=== PATIENT | female | born 1995 | race Caucasian/White ===

== ENCOUNTER 2017-03-18 12:17 | Emergency (ER) | payer MEDICAID, OTHER ==
[2017-03-18 12:24] VITALS: O2SAT 99
--- NOTE | 2017-03-18 12:56 | ERPHSYRPT ---
- History of Present Illness Time Seen by Provider: 03/18/17 12:43 Source: patient, family (boyfriend) Patient Subjective Stated Complaint: PT REPORTS TOOTHACHE FOR JUSTIN 1 MONTH- STATES THAT NOTHING HAS CHANGED ABOUT IT BUT SHE IS TIRED OF THE PAIN-DENIES FEVER-DENIES SWELLING Triage Nursing Assessment: PT PINK WARM ET [id number] EASY ET NONLABORED-NO SWELLING NOTED-NO OBVIOUS DENTAL CARRIES NOTED Physician History: CC: toothache Hx: 21 y/o patient with left lower toothache for one month. She does not have dentist. Pain worse. Working on switching her insurance. No fever or chills. No shortness or breath or vomiting. LMP end of last month and not time for next so apparently not . ENT Location: mouth (left), dental Allergies/Adverse Reactions: No Known Drug Allergies Allergy (Verified 03/18/17 12:24) Home Medications: No Home Meds 1 ea UD 03/18/17 [History] Hx Tetanus, Diphtheria Vaccination/Date Given: Yes Hx Influenza Vaccination/Date Given: No Hx Pneumococcal Vaccination/Date Given: No Immunizations Up to Date: Yes - Review of Systems Constitutional: No Fever, No Chills Eyes: No Symptoms, No Vision Changes, No Double Vision Ears, Nose, & Throat: Mouth Pain Respiratory: No Cough, No Dyspnea Abdominal/Gastrointestinal: No Vomiting, No Diarrhea Skin: No Rash Neurological: No Headache - Past Medical History Pertinent Past Medical History: No Neurological History: No Pertinent History ENT History: No Pertinent History Cardiac History: No Pertinent History Respiratory History: No Pertinent History Endocrine Medical History: No Pertinent History Musculoskeletal History: No Pertinent History GI Medical History: No Pertinent History History: No Pertinent History Psycho-Social History: No Pertinent History Female Reproductive Disorders: Other (pt is approx 6 months ) - Past Surgical History Past Surgical History: Yes Neuro Surgical History: No Pertinent History Cardiac: No Pertinent History Respiratory: No Pertinent History Gastrointestinal: No Pertinent History Genitourinary: No Pertinent History Musculoskeletal: No Pertinent History Female Surgical History: Other - Social History Smoking Status: Current every day smoker How long have you smoked: YRS Exposure to second hand smoke: Yes Drug Use: none Patient Lives Alone: No - Female History Hx Last Menstrual Period: LAST MONTH - Nursing Vital Signs Nursing Vital Signs: Initial Vital Signs Temperature 97.9 F 03/18/17 12:21 Pulse Rate 77 03/18/17 12:21 Respiratory Rate 18 03/18/17 12:21 Blood Pressure 141/64 03/18/17 12:21 O2 Sat by Pulse Oximetry 99 03/18/17 12:21 Pain Scale Pain Intensity 10 - Physical Exam General Appearance: alert, thin Eye Exam: bilateral eye: PERRL, EOMI Nasal Exam: normal inspection Throat Exam: pharynx normal, No tonsillar exudate Neck Exam: normal inspection, non-tender, supple Cardiovascular/Respiratory Exam: normal breath sounds, regular rate/rhythm Neurologic Exam: alert, oriented x 3, cooperative Skin Exam: warm, dry, other (no facial cellulitis) SpO2 Interpretation: normal SpO2: 99 Oxygen Delivery: Room Air Comments: some swelling around left 1st molar but only mildly tender. No trismus. No facial cellulitis. Some tooth erosion and gingival disease. - Course Nursing assessment & vital signs reviewed: Yes - Progress Progress Note: 03/18/17 12:54 Advised dental follow up. Rx amoxil and motrin. She declines test. Counseled pt/family regarding: diagnosis, need for follow-up - Departure Time of Disposition: 12:54 Departure Disposition: Home Clinical Impression: Toothache Condition: Stable Critical Care Time: No Referrals: DOCTOR,NO FAMILY [Primary Care Provider] - Instructions: Tooth Decay, Dental Pain Additional Instructions: Rx amoxil. Rx ibuprofen. See dentist this week for follow up- referral sheet given. Prescriptions: Ibuprofen [IBUPROFEN 400 MG TABLET] 1 tablet PO Q6HPRN PRN #20 PRN Reason: Pain Amoxicillin [Amoxil] 1 cap PO TID #21 capsule
[2017-03-18 13:06] VITALS: BP 125/71; PULSE 81
== END 2017-03-18 13:06 | disposition home or self-care (01) ==
LOC: ED 12:17
DX: K08.89 Other specified disorders of teeth and supporting structures (principal)
CPT/HCPCS: 99282

== ENCOUNTER 2017-06-25 20:37 | Emergency (ER) | payer OTHER ==
[2017-06-25 21:06] VITALS: O2SAT 100
[2017-06-25] MEDS ORDERED: Sodium Chloride 0.9% 1000 ML 1,000 ML IV STA (21:14)
[2017-06-25] MEDS ORDERED: Sodium Chloride 0.9% 1000 ML 1,000 ML ONE (21:17)
--- NOTE | 2017-06-25 21:18 | ERPHSYRPT ---
- History of Present Illness Time Seen by Provider: 06/25/17 21:11 Source: patient Patient Subjective Stated Complaint: Pt reports that she has had nausea off and on all days. Denies vomiting, denies diarrhea. Reports LMP 2.5 weeks ago. Reports feeling dizzy and like she was going to pass out, describes a feeling of racing heart earlier. Has been drinking fluids without difficulty, last food intake at 1900. Reports diffuse abd pain 7/10 describes as achy. Triage Nursing Assessment: Pt alert, oriented, answers all questions appropriately. Skin pink, warm, dry. Resps non-labored. Pt ambulatory without difficulty steady gait noted. Physician History: 22-year-old white female arrives with complaint of feeling like she's been dizzy felt like her heart was racing feels nauseous feels like she is going to pass out symptoms all day. Past medical history is negative past surgical history an ovarian cyst. Social history positive for tobacco use Timing/Duration: today Severity: moderate Modifying Factors: Improves With: nothing Associated Symptoms: nausea, No vomiting, No shortness of breath, No heartburn, No diaphoresis (mild diffuse she really give any belly ), No cough, No chills, No chest pain, No fever, No headaches, No loss of appetite, No malaise, No rash , No syncope, No seizure, No weakness Allergies/Adverse Reactions: No Known Drug Allergies Allergy (Verified 06/25/17 21:06) Home Medications: No Home Meds [No Home Meds] 1 ea UD 03/18/17 [History] Hx Tetanus, Diphtheria Vaccination/Date Given: Yes Hx Influenza Vaccination/Date Given: No Hx Pneumococcal Vaccination/Date Given: No Immunizations Up to Date: Yes - Review of Systems Constitutional: No Fever, No Chills Eyes: No Symptoms, No Eye Pain, No Eye Redness, No Itchy, No Photophobia, No Tearing, No Vision Changes, No Double Vision, No Foreign Body Sensation Ears, Nose, & Throat: No Symptoms, No Ear Pain, No Ear Discharge, No Hearing Changes, No Tinnitus, No Nose Pain, No Nose Congestion, No Nose Discharge, No Sinus Drainage, No Epistaxis, No Mouth Pain, No Mouth Swelling, No Loose Teeth, No Throat Pain, No Throat Swelling, No Hoarse, No Painful Swallowing, No Snoring , No Stridor Respiratory: No Symptoms, No Cough, No Dyspnea Cardiac: Palpitations, No Chest Pain, No Edema, No Syncope Abdominal/Gastrointestinal: Nausea, No Abdominal Pain, No Vomiting, No Diarrhea , No Constipation, No Hematemesis, No Hematochezia, No Melena, No Dysphagia, No Appetite Changes Genitourinary Symptoms: No Dysuria Musculoskeletal: No Back Pain, No Neck Pain Skin: No Rash Neurological: No Dizziness, No Focal Weakness, No Sensory Changes Psychological: No Symptoms Endocrine: No Symptoms All Other Systems: Reviewed and Negative - Past Medical History Pertinent Past Medical History: No Neurological History: No Pertinent History ENT History: No Pertinent History Cardiac History: No Pertinent History Respiratory History: No Pertinent History Endocrine Medical History: No Pertinent History Musculoskeletal History: No Pertinent History GI Medical History: No Pertinent History History: No Pertinent History Psycho-Social History: No Pertinent History Female Reproductive Disorders: Other - Past Surgical History Past Surgical History: Yes Neuro Surgical History: No Pertinent History Cardiac: No Pertinent History Respiratory: No Pertinent History Gastrointestinal: No Pertinent History Genitourinary: No Pertinent History Musculoskeletal: No Pertinent History Female Surgical History: Other - Social History Smoking Status: Current every day smoker How long have you smoked: 2 years Exposure to second hand smoke: Yes Drug Use: none Patient Lives Alone: No - Female History Hx Last Menstrual Period: 2.5 weeks ago - Nursing Vital Signs Nursing Vital Signs: Initial Vital Signs Temperature 98.1 F 06/25/17 21:01 Pulse Rate 95 H 06/25/17 21:01 Respiratory Rate 16 06/25/17 21:01 Blood Pressure 118/78 06/25/17 21:01 O2 Sat by Pulse Oximetry 100 06/25/17 21:01 Pain Scale Pain Intensity 2 - Physical Exam General Appearance: no apparent distress, alert Eye Exam: PERRL/EOMI, eyes nml inspection Ears, Nose, Throat Exam: normal ENT inspection, TMs normal, pharynx normal, moist mucous membranes Neck Exam: normal inspection, non-tender, supple, full range of motion Respiratory Exam: normal breath sounds, lungs clear, No respiratory distress Cardiovascular Exam: regular rate/rhythm, normal heart sounds, normal peripheral pulses Gastrointestinal/Abdomen Exam: soft, normal bowel sounds, No tenderness, No mass Back Exam: normal inspection, normal range of motion, No CVA tenderness, No vertebral tenderness Extremity Exam: normal inspection, normal range of motion, pelvis stable Neurologic Exam: alert, oriented x 3, cooperative, normal mood/affect, nml cerebellar function, nml station & gait, sensation nml, No motor deficits Skin Exam: normal color, warm, dry, No rash Lymphatic Exam: No adenopathy SpO2 Interpretation: normal (100%) SpO2: 100 Oxygen Delivery: Room Air - Course Nursing assessment & vital signs reviewed: Yes EKG Interpreted by Me: RATE (70 bpm), NORMAL AXIS, Other (EKG: Sinus arrhythmia , 70 bpm, normal axis, no acute ST or T wave changes essentially normal EKG) Ordered Tests: Active Orders 24 hr Category Date Time Status Accucheck STAT Care 06/25/17 21:14 Active EKG-ER Only STAT Care 06/25/17 21:14 Active IV Insertion STAT Care 06/25/17 21:14 Active Orthostatic Vital Signs STAT Care 06/25/17 21:14 Active CBC W DIFF Stat Lab 06/25/17 21:10 Completed CMP Stat Lab 06/25/17 21:10 Completed CULTURE,URINE Stat Lab 06/25/17 21:15 Received HCG QUALITATIVE,SERUM Stat Lab 06/25/17 21:10 Completed UA W/ MICROSCOPIC Stat Lab 06/25/17 21:15 Completed Urine Triage Profile Stat Lab 06/25/17 21:15 Completed Medication Summary Discontinued Medications Generic Name Dose Route Start Last Admin Trade Name Anitra PRN Reason Stop Dose Admin Sodium Chloride 1,000 mls @ 999 mls/hr 06/25/17 21:14 06/25/17 21:19 Sodium Chloride 0.9% 1000 Ml IV 06/25/17 22:14 999 mls/hr .Q1H1M STA Administration Sodium Chloride Confirm 06/25/17 21:17 Sodium Chloride 0.9% 1000 Ml Administered 06/25/17 21:18 Dose 1,000 mls @ ud .ROUTE .STK-MED ONE Ondansetron HCl 4 mg 06/25/17 23:39 Zofran 4 Mg/2 Ml Vial IV 06/25/17 23:40 STAT ONE Trimethoprim/Sulfamethoxazole 1 tab 06/25/17 23:39 Bactrim Ds Tablet PO 06/25/17 23:40 STAT ONE Lab/Rad Data: Laboratory Result Diagrams 06/25/17 21:10 06/25/17 21:10 Laboratory Results 06/25/17 06/25/17 06/25/17 Range/Units 21:15 21:15 21:10 WBC (4.0-10.5) K/mm3 RBC (4.1-5.4) M/mm3 Hgb (12.0-16.0) gm/dl Hct (35-47) % MCV (78-100) fl MCH (26-32) pg MCHC (32-36) g/dl RDW (11.5-14.0) % Plt Count (150-450) K/mm3 MPV (6-9.5) fl Gran % (36.0-66.0) % Lymphocytes % (24.0-44.0) % Monocytes % (0.0-12.0) % Eosinophils % (0.00-5.0) % Basophils % (0.0-0.4) % Basophils # (0-0.4) Sodium (136-145) mEq/L Potassium (3.5-5.1) mEq/L Chloride (98-107) mEq/L Carbon Dioxide (21-32) mEq/L Anion Gap (5-15) MEQ/L BUN (9-20) mg/dL Creatinine (0.55-1.30) mg/dl Estimated GFR ML/MIN Glucose (70-110) MG/DL Calcium (8.5-10.1) mg/dL Total Bilirubin (0.2-1.0) mg/dL AST (15-37) U/L ALT (12-78) U/L Alkaline Phosphatase (46-116) U/L Serum Total Protein (6.4-8.2) gm/dL Albumin (3.4-5.0) g/dL Serum , Qual NEGATIVE (Negative) Ur Collection Type CLEAN CATCH Urine Color YELLOW (YELLOW) Urine Appearance CLOUDY (CLEAR) Urine pH 5.0 (5-6) Ur Specific Flushing 1.030 (1.005-1.025) Urine Protein NEGATIVE (Negative) Urine Ketones NEGATIVE (NEGATIVE) Urine Blood TRACE NON-HEM (0-5) Clifford/ul Urine Nitrite NEGATIVE (NEGATIVE) Urine Bilirubin NEGATIVE (NEGATIVE) Urine Urobilinogen NORMAL (0-1) mg/dL Ur Leukocyte Esterase 1+ (NEGATIVE) Urine Microscopic WBC 5-10 (0-5) /HPF Ur Epithelial Cells MODERATE (FEW) /HPF Urine Bacteria FEW (NEGATIVE) /HPF Urine Mucus SLIGHT (NEGATIVE) /HPF Urine Culture Reflexed YES (NO) Urine Glucose NEGATIVE (NEGATIVE) mg/dL Urine Opiates Level NEG. (NEGATIVE) Ur Methadone NEG. (NEGATIVE) Urine Barbiturates NEG. (NEGATIVE) Ur Phencyclidine (PCP) NEG. (NEGATIVE) Urine Amphetamine NEG. (NEGATIVE) U Benzodiazepine Level NEG. (NEGATIVE) Urine Cocaine NEG. (NEGATIVE) Urine Marijuana (THC) NEG. (NEGATIVE) Specimen Received [id number] 06/25/17 06/25/17 Range/Units 21:10 21:10 WBC 13.3 H (4.0-10.5) K/mm3 RBC 4.47 (4.1-5.4) M/mm3 Hgb 13.6 (12.0-16.0) gm/dl Hct 41.9 (35-47) % MCV 93.7 (78-100) fl MCH 30.4 (26-32) pg MCHC 32.5 (32-36) g/dl RDW 12.7 (11.5-14.0) % Plt Count 207 (150-450) K/mm3 MPV 9.6 H (6-9.5) fl Gran % 79.7 H (36.0-66.0) % Lymphocytes % 11.8 L (24.0-44.0) % Monocytes % 8.1 (0.0-12.0) % Eosinophils % 0.3 (0.00-5.0) % Basophils % 0.1 (0.0-0.4) % Basophils # 0.01 (0-0.4) Sodium 140 (136-145) mEq/L Potassium 4.1 (3.5-5.1) mEq/L Chloride 104 (98-107) mEq/L Carbon Dioxide 26.9 (21-32) mEq/L Anion Gap 12.7 (5-15) MEQ/L BUN 15 (9-20) mg/dL Creatinine 0.69 (0.55-1.30) mg/dl Estimated GFR > 60 ML/MIN Glucose 102 (70-110) MG/DL Calcium 9.6 (8.5-10.1) mg/dL Total Bilirubin 0.50 (0.2-1.0) mg/dL AST 16 (15-37) U/L ALT 22 (12-78) U/L Alkaline Phosphatase 62 (46-116) U/L Serum Total Protein 7.8 (6.4-8.2) gm/dL Albumin 4.3 (3.4-5.0) g/dL Serum , Qual (Negative) Ur Collection Type Urine Color (YELLOW) Urine Appearance (CLEAR) Urine pH (5-6) Ur Specific Flushing (1.005-1.025) Urine Protein (Negative) Urine Ketones (NEGATIVE) Urine Blood (0-5) Clifford/ul Urine Nitrite (NEGATIVE) Urine Bilirubin (NEGATIVE) Urine Urobilinogen (0-1) mg/dL Ur Leukocyte Esterase (NEGATIVE) Urine Microscopic WBC (0-5) /HPF Ur Epithelial Cells (FEW) /HPF Urine Bacteria (NEGATIVE) /HPF Urine Mucus (NEGATIVE) /HPF Urine Culture Reflexed (NO) Urine Glucose (NEGATIVE) mg/dL Urine Opiates Level (NEGATIVE) Ur Methadone (NEGATIVE) Urine Barbiturates (NEGATIVE) Ur Phencyclidine (PCP) (NEGATIVE) Urine Amphetamine (NEGATIVE) U Benzodiazepine Level (NEGATIVE) Urine Cocaine (NEGATIVE) Urine Marijuana (THC) (NEGATIVE) Specimen Received - Progress Progress: improved Progress Note: 06/25/17 21:54 22-year-old white female complains of feeling nauseous all day mild achiness in her abdomen and diffuse nonspecific no focal tenderness. Patient was mildly orthostatic. Patient states he felt like she was having palpitations felt dizzy. Patient given IV normal saline. Labs show white count of 13.3 urine with early urinary tract infection. Patient with no focal tenderness on abdominal exam. Patient received Zofran Will plan on checking influenza. 06/25/17 23:40 Patient feeling better after IV fluids Patient does not want to wait for influenza test. Patient does have a urinary tract infection. Will give patient Zofran, Bactrim Home with Zofran , Bactrim. 06/25/17 23:44 - Departure Time of Disposition: 23:41 Departure Disposition: Home Clinical Impression: Vomiting Qualifiers: Vomiting type: unspecified Vomiting Intractability: non-intractable Nausea presence: with nausea Qualified Code(s): R11.2 - Nausea with vomiting, unspecified UTI (urinary tract infection) Qualifiers: Urinary tract infection type: site unspecified Hematuria presence: without hematuria Qualified Code(s): N39.0 - Urinary tract infection, site not specified Abdominal pain Qualifiers: Abdominal location: generalized Qualified Code(s): R10.84 - Generalized abdominal pain Condition: Fair Critical Care Time: No Referrals: FREDRICK REID [Primary Care Provider] - Instructions: Abdominal Pain-Adult Additional Instructions: Return home. Plenty of fluids clear fluids only if nausea vomiting or abdominal pain. Bactrim and Zofran as prescribed. Follow-up with your family doctor . Return for acute distress or for severe symptoms. Prescriptions: Ondansetron [Zofran Odt] 4 mg PO Q4-6HPRN PRN #10 tab.rapdis PRN Reason: Vomiting Smz/Tmp Ds Tablet [Bactrim Ds Tablet] 1 tab PO BID #20 tablet
[2017-06-25 21:22] LABS: BASOPHIL % 0.1 % (0.0-0.4); Eosinophil % 0.3 % (0.00-5.0); Granulocytes % 79.7 % (36.0-66.0); Lymphocytes % 11.8 % (24.0-44.0); Mean Cell Volume 93.7 fl (78-100); Mean Corpuscular Hemoglobin 30.4 pg (26-32); Mean Platelet Volume 9.6 fl (6-9.5); Monocytes % 8.1 % (0.0-12.0); Platelet Count 207 K/mm3 (150-450); Red Blood Count 4.47 M/mm3 (4.1-5.4); Red Cell Distribution Width 12.7 % (11.5-14.0); White Blood Count 13.3 K/mm3 (4.0-10.5)
[2017-06-25 21:34] LABS: Bilirubin NEGATIVE (NEGATIVE); Blood TRACE NON-HEM Ery/ul (0-5); COMPLETE URINE MICROSCOPIC? YES; Collection Type CLEAN CATCH; Glucose NEGATIVE (NEGATIVE); Leukocyte Esterase 1+ (NEGATIVE)
[2017-06-25 21:35] LABS: ADD URINE CULTURE? YES (NO); Bacteria FEW /HPF (NEGATIVE); Epithelial Cells MODERATE /HPF (FEW); Mucus SLIGHT /HPF (NEGATIVE)
[2017-06-25 21:50] LABS: ALBUMIN 4.3 g/dL (3.4-5.0); ALKALINE PHOSPHATASE 62 U/L (46-116); ANION GAP 12.7 MEQ/L (5-15); BLOOD UREA NITROGEN 15 mg/dL (9-20); CHLORIDE 104 mEq/L (98-107); Carbon Dioxide 26.9 mEq/L (21-32); Glucose 102 MG/DL (70-110); Potassium 4.1 mEq/L (3.5-5.1); SGOT/AST 16 U/L (15-37); SGPT/ALT 22 U/L (12-78); SODIUM 140 mEq/L (136-145); Total Protein 7.8 gm/dL (6.4-8.2)
[2017-06-25] MEDS ORDERED: BACTRIM DS TABLET PO ONE ×2 (23:39→23:46)
[2017-06-25] MEDS ORDERED: Zofran 4 MG/2 ML VIAL IV ONE (23:39)
[2017-06-25] MEDS ORDERED: Zofran 4 MG/2 ML VIAL ONE (23:46)
[2017-06-26 00:13] VITALS: BP 113/67; PULSE 87
== END 2017-06-26 00:20 | disposition home or self-care (01) ==
LOC: ED 20:37
DX: R11.2 Nausea with vomiting, unspecified (principal); N39.0 Urinary tract infection, site not specified; R10.84 Generalized abdominal pain
CPT/HCPCS: 36415; 80053; 80307; 81000; 82962; 84703; 85025; 87086; 87631; 93005; 96360; 96374; 99284; J2405; A9270-GY

== ENCOUNTER 2024-09-04 15:03 | Emergency (ER) | payer BC, OTHER ==
[2024-09-04 15:23] VITALS: RESP 18; TEMP 96.8
[2024-09-04] MEDS ORDERED: Norflex 60 MG/2 ML ONE (15:31)
[2024-09-04] MEDS ORDERED: TORAdol 30 mg Injection ONE (15:31)
[2024-09-04] MEDS: Norflex 60 MG/2 ML IM ONE (15:32)
[2024-09-04] MEDS: TORAdol 30 mg Injection IM ONE (15:32)
[2024-09-04 15:45] LABS: HCG URINE TEST NEGATIVE (NEGATIVE)
[2024-09-04 16:05] LABS: Appearance Turbid (Clear); Bacteria Many /HPF (None Seen); Bilirubin Negative (Negative); Blood Small (Negative); Epithelial Cells Many /HPF (None Seen); Glucose, Urine Negative (Negative); Ketones Trace (Negative); Leukocyte Esterase Moderate (Negative); Nitrite Negative (Negative); Ph 5.5 (4.6-8.0); Protein,Urine Dip 30 (Negative); RBC 21-50 /HPF (0-5); Specific Gravity 1.025 (1.005-1.030); WBC >100 /HPF (0-5)
--- NOTE | 2024-09-04 16:25 | ERPHSYRPT ---
- History of Present Illness Time Seen by Provider: 09/04/24 15:07 Source: patient, family Exam Limitations: no limitations Patient Subjective Stated Complaint: pt states that she has lower back pain. pt states that she was given muscle relaxant medication but is not helping Triage Nursing Assessment: pt ambulated into the er; pt is axo x4; c/o lower back pain; pt states 7/10 pain to lower back; facial grimacing present with movement; limited ROM to back; no deformity or bruising present; skin PDW; no respiratory distress present; tachycardic Physician History: 29-year-old female fairly healthy presented in the ER with complaint of low back pain for almost 1 month with progressive worsening. Patient reports pain across low back but more on the left, aggravation with activity/movements and better with being still specially in the lying position and application of heat. Nonradiating, no numbness tingling or weakness of lower extremities/loss of bowel or bladder control/saddle anesthesia. Denies any fall or trauma. Patient has been evaluated outpatient currently on [facility] with no significant relief. Denies any urinary complaints. Allergies/Adverse Reactions: No Known Drug Allergies Allergy (Verified 09/04/24 15:11) Home Medications: Cyclobenzaprine HCl 5 mg PO TID PRN 09/04/24 [History] Escitalopram Oxalate 10 mg PO DAILY 09/04/24 [History] Hx Tetanus, Diphtheria Vaccination/Date Given: No Hx Influenza Vaccination/Date Given: No Hx Pneumococcal Vaccination/Date Given: No Travel Risk - International Travel Have you traveled outside of the country in past 3 weeks: No - Emerging Infectious Disease Are you exhibiting symptoms associated with any current EIDs: No - Review of Systems Constitutional: No Symptoms Ears, Nose, & Throat: No Symptoms Respiratory: No Symptoms Cardiac: No Symptoms Abdominal/Gastrointestinal: No Symptoms Genitourinary Symptoms: No Symptoms Musculoskeletal: Back Pain Skin: No Symptoms Neurological: No Symptoms Endocrine: No Symptoms Hematologic/Lymphatic: No Symptoms - Past Medical History Pertinent Past Medical History: No Neurological History: No Pertinent History ENT History: No Pertinent History Cardiac History: No Pertinent History Respiratory History: No Pertinent History Endocrine Medical History: No Pertinent History Musculoskeletal History: No Pertinent History GI Medical History: No Pertinent History History: No Pertinent History Psycho-Social History: Depression Female Reproductive Disorders: Other - Past Surgical History Past Surgical History: Yes Neuro Surgical History: No Pertinent History Cardiac: No Pertinent History Respiratory: No Pertinent History Gastrointestinal: No Pertinent History Genitourinary: No Pertinent History Musculoskeletal: No Pertinent History Female Surgical History: Other - Female History Hx Last Menstrual Period: 08/29/24 Hx Now: (unkn) - Social History Smoking Status: Light tobacco smoker How long have you smoked: 2 years Exposure to second hand smoke: Yes Drug Use: none Patient Lives Alone: No - Social Determinants of Health Will the patient participate in the screening: Yes Do you worry about a steady place to live?: No Do you have any problems with any of the following?: No known problems In the past 12 months,have you had to go without utilities?: No Transportation Issues: No Has anyone in your support network made you feel unsafe?: No Have you or anyone in your house had to go without enough: No - Nursing Vital Signs Nursing Vital Signs: Initial Vital Signs Pulse Rate 102 H 09/04/24 15:11 Blood Pressure 126/88 09/04/24 15:11 O2 Sat by Pulse Oximetry 99 09/04/24 15:11 Pain Scale Pain Intensity [Lower Back] 7 Pain Intensity 2 - Physical Exam General Appearance: no apparent distress, alert Eye Exam: PERRL/EOMI Neck Exam: normal inspection, full range of motion Respiratory Exam: normal breath sounds, lungs clear Cardiovascular Exam: regular rate/rhythm, normal heart sounds Gastrointestinal Exam: soft, normal bowel sounds, No tenderness Back Exam: normal inspection, muscle spasm, other (Straight leg raising test negative.), No CVA tenderness Extremity Exam: normal inspection, normal range of motion Neurologic Exam: alert, oriented x 3, cooperative, producer II-XII nml as tested, normal mood/affect, nml cerebellar function, nml station & gait, sensation nml, No motor deficits SpO2 Interpretation: normal SpO2: 99 O2 Delivery: Room Air Ordered Tests: Medication Summary Discontinued Medications Generic Name Dose Route Start Last Admin Trade Name Freq PRN Reason Stop Dose Admin Ceftriaxone Sodium 2 gm in 100 mls @ 200 mls/hr 09/04/24 17:05 09/04/24 17:49 Rocephin 2 Gm/100 Ml Nacl IV 09/04/24 17:34 Infused STAT ONE Infusion Ceftriaxone Sodium Confirm 09/04/24 17:08 Rocephin 2 Gm/100 Ml Nacl Administered 09/04/24 17:09 Dose 2 gm in 100 mls @ ud IV .STK-MED ONE Ketorolac Tromethamine 30 mg 09/04/24 15:30 09/04/24 15:32 Ketorolac Tromethamine 30 Mg/Ml Inj IM 09/04/24 15:31 30 mg STAT ONE Administration Ketorolac Tromethamine Confirm 09/04/24 15:31 Ketorolac Tromethamine 30 Mg/Ml Inj Administered 09/04/24 15:32 Dose 30 mg .ROUTE .STK-MED ONE Orphenadrine Citrate 60 mg 09/04/24 15:30 09/04/24 15:32 Orphenadrine Citrate 60 Mg/2 Ml Vial IM 09/04/24 15:31 60 mg STAT ONE Administration Orphenadrine Citrate Confirm 09/04/24 15:31 Orphenadrine Citrate 60 Mg/2 Ml Vial Administered 09/04/24 15:32 Dose 60 mg .ROUTE .STK-MED ONE Lab/Rad Data: Laboratory Result Diagrams 09/04/24 17:30 09/04/24 17:30 Laboratory Results 09/04/24 09/04/24 09/04/24 Range/Units 17:30 17:30 15:45 WBC 6.3 (3.98-10.04) x10^3/uL RBC 4.73 (3.93-5.22) x10^6/uL Hgb 14.2 (11.2-15.7) g/dL Hct 43.2 (34.1-44.9) % MCV 91.3 (79.4-94.8) fL MCH 30.0 (25.6-32.2) pg MCHC 32.9 (32.2-35.5) g/dL RDW 11.9 (11.7-14.4) % Plt Count 296 (182-369) x10^3/uL MPV 9.3 L (9.4-12.3) fL Gran % 69.2 (34.0-71.1) % Immature Gran % (Auto) 0.3 (0.001-0.429) % Nucleat RBC Rel Count 0.0 (0.00-0.2) % Eos # (Auto) 0.05 (0.04-0.36) x10^3/uL Immature Gran # (Auto) 0.02 (0.001-0.031) x10^3u/L Absolute Lymphs (auto) 1.44 (1.18-3.74) x10^3/uL Absolute Monos (auto) 0.41 (0.24-0.86) x10^3/uL Absolute Nucleated RBC 0.00 (0.00-0.012) x10^3u/L Lymphocytes % 22.7 (19.3-51.7) % Monocytes % 6.5 (4.7-12.5) % Eosinophils % 0.8 (0.7-5.8) % Basophils % 0.5 (0.1-1.2) % Absolute Granulocytes 4.39 (1.56-6.13) x10^3/uL Basophils # 0.03 (0.01-0.08) x10^3/uL Sodium 136 (135-145) mmol/L Potassium 4.4 (3.5-5.1) mmol/L Chloride 104 (98-107) mmol/L Carbon Dioxide 24 (22-30) mmol/L Anion Gap 13.2 (5-15) MEQ/L BUN 17 (7-17) mg/dL Creatinine 0.75 (0.52-1.04) mg/dL Estimated GFR 111.8 ML/MIN Glucose 90 (74-106) mg/dL Calcium 9.4 (8.4-10.2) mg/dL Total Bilirubin 1.20 (0.2-1.3) mg/dL AST 30 (14-36) U/L ALT 19 (0-35) U/L Alkaline Phosphatase 50 (38-126) U/L Serum Total Protein 7.8 (6.3-8.2) g/dL Albumin 4.7 (3.5-5.0) g/dL Urine Color (Yellow) Urine Appearance (Clear) Urine pH (4.6-8.0) Ur Specific [place] (1.005-1.030) Urine Protein (Negative) Urine Glucose (UA) (Negative) mg/dL Urine Ketones (Negative) Urine Blood (Negative) Urine Nitrite (Negative) Urine Bilirubin (Negative) Urine Urobilinogen (0.2) mg/dL Ur Leukocyte Esterase (Negative) U Hyaline Cast (Auto) (0-2) /LPF Urine Microscopic RBC (0-5) /HPF Urine Microscopic WBC (0-5) /HPF Ur Epithelial Cells (None Seen) /HPF Urine Bacteria (None Seen) /HPF Urine Culture Reflexed (NO) Urine HCG, Qual NEGATIVE (NEGATIVE) 09/04/24 Range/Units 15:41 WBC (3.98-10.04) x10^3/uL RBC (3.93-5.22) x10^6/uL Hgb (11.2-15.7) g/dL Hct (34.1-44.9) % MCV (79.4-94.8) fL MCH (25.6-32.2) pg MCHC (32.2-35.5) g/dL RDW (11.7-14.4) % Plt Count (182-369) x10^3/uL MPV (9.4-12.3) fL Gran % (34.0-71.1) % Immature Gran % (Auto) (0.001-0.429) % Nucleat RBC Rel Count (0.00-0.2) % Eos # (Auto) (0.04-0.36) x10^3/uL Immature Gran # (Auto) (0.001-0.031) x10^3u/L Absolute Lymphs (auto) (1.18-3.74) x10^3/uL Absolute Monos (auto) (0.24-0.86) x10^3/uL Absolute Nucleated RBC (0.00-0.012) x10^3u/L Lymphocytes % (19.3-51.7) % Monocytes % (4.7-12.5) % Eosinophils % (0.7-5.8) % Basophils % (0.1-1.2) % Absolute Granulocytes (1.56-6.13) x10^3/uL Basophils # (0.01-0.08) x10^3/uL Sodium (135-145) mmol/L Potassium (3.5-5.1) mmol/L Chloride (98-107) mmol/L Carbon Dioxide (22-30) mmol/L Anion Gap (5-15) MEQ/L BUN (7-17) mg/dL Creatinine (0.52-1.04) mg/dL Estimated GFR ML/MIN Glucose (74-106) mg/dL Calcium (8.4-10.2) mg/dL Total Bilirubin (0.2-1.3) mg/dL AST (14-36) U/L ALT (0-35) U/L Alkaline Phosphatase (38-126) U/L Serum Total Protein (6.3-8.2) g/dL Albumin (3.5-5.0) g/dL Urine Color Yellow (Yellow) Urine Appearance Turbid A (Clear) Urine pH 5.5 (4.6-8.0) Ur Specific [place] 1.025 (1.005-1.030) Urine Protein 30 (Negative) Urine Glucose (UA) Negative (Negative) mg/dL Urine Ketones Trace A (Negative) Urine Blood Small A (Negative) Urine Nitrite Negative (Negative) Urine Bilirubin Negative (Negative) Urine Urobilinogen 1.0 A (0.2) mg/dL Ur Leukocyte Esterase Moderate A (Negative) U Hyaline Cast (Auto) 11-20 (0-2) /LPF Urine Microscopic RBC 21-50 A (0-5) /HPF Urine Microscopic WBC >100 A (0-5) /HPF Ur Epithelial Cells Many A (None Seen) /HPF Urine Bacteria Many A (None Seen) /HPF Urine Culture Reflexed YES (NO) Urine HCG, Qual (NEGATIVE) - Progress Progress: improved Progress Note: 09/04/24 18:08 29-year-old is evaluated in the ER for lower back pain. She has back pain for almost a month across low back and now having more pain in the left lower. Negative neuroexam in lower extremities, straight leg raising test negative bilaterally. No saddle anesthesia or other cauda equina symptoms. She is given Toradol and Norflex for symptomatic relief, feeling better on reevaluation. She does have UTI and given a dose of Rocephin. Has normal white count, unremarkable chemistries. Obtained CT lumbar spine which is negative for any acute finding in the lumbar spine but did show left adnexal mass probably ovarian in origin. I have ordered ultrasound pelvis but radiology cannot do it today as no tech is available in the building and she cannot be called in per radiology administration because this is not an emergent need per radiology. She does not have any abdominal or flank/CVA tenderness and I believe because of left lower back pain is this mass. I have shared the results of workup with patient and family and plan of ultrasound tomorrow which they agree. I have ordered ultrasound outpatient, recommended taking Tylenol ibuprofen and ultrasound in the morning. Discussed signs symptoms of worsening needing return to ER which patient/family seem understanding. Counseled pt/family regarding: lab results, diagnosis, need for follow-up, rad results Medical Desision Making - Independent Historian Additional History obtained from: Spouse, Mother - Diagnostic Testing Diagnostic test were ordered, analyzed, and reviewed by me: Yes Radiological Interpretation: Reviewed by me - Risk of complications The pt has a mod risk of morbidity or mortality based on: Need for prescription drug management - Departure Departure Disposition: Home Clinical Impression: UTI (urinary tract infection), Adnexal mass Condition: Stable Critical Care Time: No Referrals: NANCY AKHTAR [Primary Care Provider] - Follow up with PCP 1 day NANDO WHITMORE DO [ACTIVE STAFF] - Follow up/PCP as directed (Call for appointment for reevaluation) Instructions: Urinary tract infection in adults - ED discharge instructions Additional Instructions: Take Tylenol/ibuprofen as needed. Follow-up with primary care/[facility] for reevaluation. Have ultrasound done in the morning as scheduled. Return to ER for intractable pain, nausea vomiting, difficulty urination or if develop fever chills etc. Prescriptions: Cefpodoxime Proxetil 200 mg [Vantin 200 mg] 200 mg PO BID 7 Days #14 tablet
--- NOTE | 2024-09-04 16:54 | XRAY ---
Indication: Low back pain. Multiple contiguous axial images obtained through the lumbar spine. Sagittal and coronal reformatted images obtained. Comparison: None Normal appearing bones and articulation. Facets are symmetric. Sagittal and coronal reformatted images demonstrates normal alignment with vertebral body heights/disc spaces maintained. Visualized noncontrasted soft tissues demonstrates 5 x 6 cm left adnexal mass, probably ovary in etiology. Impression: 1. 5 x 6 cm left adnexa mass probably ovary in etiology. Pelvic sonogram may yield further information. 2. Normal CT lumbar spine.
[2024-09-04] MEDS ORDERED: ROCEPHIN 2 GM/100 ML NACL 2 GM/100 ML IVPB IV ONE (17:08)
[2024-09-04] MEDS: ROCEPHIN 2 GM/100 ML NACL 2 GM/100 ML IVPB IV ONE (17:13)
[2024-09-04 17:38] LABS: Absolute Neutrophil Ct (ANC) 4.39 x10^3/uL (1.56-6.13); BASOPHIL % 0.5 % (0.1-1.2); Basophil (Absolute #) 0.03 x10^3/uL (0.01-0.08); Eosinophil % 0.8 % (0.7-5.8); Eosinophil (Absolute #) 0.05 x10^3/uL (0.04-0.36); Hematocrit 43.2 % (34.1-44.9); Hemoglobin 14.2 g/dL (11.2-15.7); IMMATURE GRAN # 0.02 x10^3u/L (0.001-0.031); IMMATURE GRAN % 0.3 % (0.001-0.429); Lymphocyte (Absolute #) 1.44 x10^3/uL (1.18-3.74); Lymphocytes % 22.7 % (19.3-51.7); Mean Cell Volume 91.3 fL (79.4-94.8); Mean Corpuscular Hgb Concent. 32.9 g/dL (32.2-35.5); Mean Platelet Volume 9.3 fL (9.4-12.3); Monocyte (Absolute #) 0.41 x10^3/uL (0.24-0.86); Monocytes % 6.5 % (4.7-12.5); Neutrophil % 69.2 % (34.0-71.1); Platelet Count 296 x10^3/uL (182-369); Red Blood Count 4.73 x10^6/uL (3.93-5.22); Red Cell Distribution Width 11.9 % (11.7-14.4); White Blood Count 6.3 x10^3/uL (3.98-10.04)
[2024-09-04 18:01] LABS: ALBUMIN 4.7 g/dL (3.5-5.0); ANION GAP 13.2 MEQ/L (5-15); BILIRUBIN,TOTAL 1.2 mg/dL (0.2-1.3); Calcium 9.4 mg/dL (8.4-10.2); Creatinine 1 0.75 mg/dL (0.52-1.04); EST GLOMERULAR FILTRATION RATE 111.8 ML/MIN; Potassium 4.4 mmol/L (3.5-5.1); Total Protein 7.8 g/dL (6.3-8.2)
[2024-09-04 18:58] VITALS: BP 126/80; PULSE 65
[2024-09-05 23:55] VITALS: O2SAT 99
== END 2024-09-04 19:01 | disposition home or self-care (01) ==
LOC: ED 15:03
DX: N39.0 Urinary tract infection, site not specified (principal); R19.00 Intra-abdominal and pelvic swelling, mass and lump, unspecified site; M54.50 Low back pain, unspecified; Z79.899 Other long term (current) drug therapy; Z72.0 Tobacco use
CPT/HCPCS: 36415; 72131; 80053; 81001; 81025; 85025; 87086; 96372; 96375; 99284; J0696; J1885; J2360